=== PATIENT | male | born 1985 | race Caucasian/White ===

== ENCOUNTER 2018-08-11 19:20 | Emergency (ER) ==
[~2018-08-11] VITALS: Ht 165.1 cm; Wt 79.5 kg
== END 2018-08-11 19:55 | disposition home or self-care (01) ==
LOC: COL.ER 19:20
DX: R11.10 Vomiting, unspecified (principal)

== ENCOUNTER 2020-07-18 18:52 | Emergency (ER) | payer OTHER ==
[~2020-07-18] VITALS: Ht 170.2 cm; Wt 90.9 kg
[2020-07-18 19:08] VITALS: TEMP 98.4
[2020-07-18 20:25] VITALS: BP 132/80; PULSE 82
== END 2020-07-18 20:30 | disposition home or self-care (01) ==
LOC: COL.ER 18:52
DX: U07.1 COVID-19 (principal); J06.9 Acute upper respiratory infection, unspecified

== ENCOUNTER 2022-11-02 02:21 | Emergency (ER) | payer OTHER ==
[~2022-11-02] VITALS: Ht 170.2 cm; Wt 81.8 kg
[2022-11-02 02:25] VITALS: TEMP 97.8
[2022-11-02 02:38] LABS: BASO # 0.1 K/mm3 (0.0-0.2); BASO % 0.6 % (0.0-2.0); EOS # 0.3 K/mm3 (0.0-0.7); EOS % 2.3 % (0.0-4.0); GRAN # 7.9 K/mm3 (1.4-6.5); GRAN % 63.8 % (42.2-75.2); HEMATOCRIT 39.6 % (42.0-52.0); HEMOGLOBIN 13.6 g/dl (13.5-18.0); LYMPH # 2.9 K/mm3 (1.2-3.4); LYMPH % 23.3 % (20.0-51.0); MEAN CELL VOLUME 90 fl (80.0-100.0); MEAN CORPUSCULAR HEMOGLOBIN 31 pg (27-31); MEAN CORPUSCULAR HGB CONC 34 g/dl (33.0-37.0); MONO # 1.2 K/mm3 (0.1-0.6); MONO % 9.7 % (1.7-9.3); PLATELET COUNT 359 K/mm3 (130-400); RED BLOOD COUNT 4.42 M/mm3 (4.20-5.60); REDCELL DISTRIBUTION WIDTH-CV 12.6 % (11.5-14.5)
[2022-11-02 02:57] LABS: ALANINE AMINOTRANSFERASE 20 U/L (0-55); ALKALINE PHOSPHATASE 121 U/L (40-150); ANION GAP 10 mmol/L (7-16); AST,SGOT 17 U/L (5-34); BILIRUBIN,TOTAL 0.2 mg/dL (0.2-1.2); BLOOD UREA NITROGEN 13 mg/dL (9-21); CALCIUM 9.3 mg/dL (8.4-10.2); CARBON DIOXIDE 22 mmol/L (22-29); CHLORIDE 106 mmol/L (98-107); CREATINE KINASE 250 U/L (30-200); CREATININE, serum 1.12 mg/dL (0.72-1.25); GLUCOSE 57 mg/dL (70-99); POTASSIUM 3.9 mmol/L (3.5-4.5); SODIUM 138 mmol/L (136-145); TOTAL PROTEIN 8.1 gm/dL (6.2-8.1)
[2022-11-02 03:04] LABS: TROPONIN-I < 0.010 ng/mL (0.00-0.033)
[2022-11-02] MEDS ORDERED: NAPROSYN500 MG PO (03:26)
[2022-11-02 03:47] VITALS: BP 143/90; PULSE 76
== END 2022-11-02 03:57 | disposition home or self-care (01) ==
LOC: COL.ER 02:21
PROVIDERS: Emergency Medicine
DX: R07.81 Pleurodynia (principal); Z28.310 Unvaccinated for COVID-19
CPT/HCPCS: J1885; J7030